=== PATIENT | female | born 2000 | race Caucasian/White ===

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

== ENCOUNTER 2018-04-04 10:33 | Emergency (ER) | payer BC ==
[2018-04-04 11:07] VITALS: BP 138/73
[2018-04-04] MEDS ORDERED: Albuterol 2.5 MG/3 ML NEB.SOL* (0.083%) INH ONE (11:21)
--- NOTE | 2018-04-04 11:23 | UC ---
UC General HPI - HPI Summary HPI Summary: 3 DAY HX COUGH, FEVER, BODY ACHES AND SORE THROAT. + WHEEZING AND ROYAL. CHEST HURTS WITH COUGH. NO HX ASTHMA. TXING WITH DAYQUIL. - History of Current Complaint Chief Complaint: UCGeneralIllness Stated Complaint: COUGH ACHY FEVER SORE THROAT Time Seen by Provider: 04/04/18 11:13 Hx Obtained From: Patient Hx Last Menstrual Period: 04/01/18 Onset/Duration: Sudden Onset Timing: Constant Pain Intensity: 4 Associated Signs & Symptoms: Negative: Abdominal Pain, Diarrhea, Dysuria, Nausea , Vomiting - Allergy/Home Medications Allergies/Adverse Reactions: Allergies Allergy/AdvReac Type Severity Reaction Status Date / Time amoxicillin Allergy Rash And Verified 04/04/18 11:03 Itching Home Medications: Home Medications ALPRAZolam [Xanax] 2 mg PO DAILY 04/04/18 [History Confirmed 04/04/18] Dm/Pseudoephed/Acetaminophen [Day-Time Cold-Flu Softgel] 1 each PO ONCE [History Confirmed 04/04/18] Lisinopril TAB* [Prinivil TAB 10 MG*] 10 mg PO DAILY 04/04/18 [History Confirmed 04/04/18] Venlafaxine HCl 150 mg PO DAILY 04/04/18 [History Confirmed 04/04/18] PMH/Surg Hx/FS Hx/Imm Hx - Additional Past Medical History Additional PMH: ANEMIA Cardiovascular History: Hypertension Psychological History: Anxiety Other History Of: Negative For: HIV, Hepatitis B, Hepatitis C, Anticoagulant Therapy - Surgical History Surgical History: Yes Surgery Procedure, Year, and Place: tonsilectomy - Family History Known Family History: Positive: Hypertension Negative: Cardiac Disease - Social History Occupation: Employed Full-time Alcohol Use: None Substance Use Type: None Smoking Status (MU): Never Smoked Tobacco Household Exposure Type: Cigarettes - Immunization History Vaccination Up to Date: Yes Review of Systems All Other Systems Reviewed And Are Negative: Yes Constitutional: Positive: Fever, Chills Skin: Positive: Negative Eyes: Positive: Negative ENT: Positive: Sore Throat Respiratory: Positive: Shortness Of Breath, Cough Cardiovascular: Positive: Negative Gastrointestinal: Positive: Negative Genitourinary: Positive: Negative Motor: Positive: Negative Neurovascular: Positive: Negative Musculoskeletal: Positive: Myalgia Neurological: Positive: Negative Psychological: Positive: Negative Is Patient Immunocompromised?: No Physical Exam Triage Information Reviewed: Yes Appearance: Well-Appearing Vital Signs: Initial Vital Signs Temp 97.6 F 04/04/18 11:00 Pulse 85 04/04/18 11:00 Resp 17 04/04/18 11:00 BP 138/73 04/04/18 11:00 Pulse Ox 99 04/04/18 11:00 Vital Signs Reviewed: Yes Eyes: Positive: Conjunctiva Clear ENT: Positive: Pharynx normal, TMs normal. Negative: Nasal congestion, Nasal drainage Neck: Positive: Supple, Nontender, No Lymphadenopathy Respiratory: Positive: No respiratory distress, Decreased breath sounds, Other: - CONGESTED COUGH Cardiovascular: Positive: RRR, No Murmur Abdomen Description: Positive: Nontender, No Organomegaly, Soft Bowel Sounds: Positive: Present Musculoskeletal: Positive: ROM Intact Neurological: Positive: Alert Psychological: Positive: Age Appropriate Behavior Skin Exam: Normal Diagnostics - Laboratory Diagnostic Studies Completed/Ordered: RAPID FLU AND STREP ARE NEGATIVE - Radiology No standard instances Radiology Interpretation Completed By: Radiologist - cxr=NO ACTIVE CARDIOPULMONARY DISEASE. Course/Dx - Course Course Of Treatment: non toxic, rapid flu/strep are neg. cxr=nad. - Diagnoses Provider Diagnosis: Sore throat, Bronchitis Discharge - Sign-Out/Discharge Documenting (check all that apply): Patient Departure All imaging exams completed and their final reports reviewed: Yes - Discharge Plan Condition: Stable Disposition: HOME Prescriptions: Albuterol HFA INHALER* [Ventolin HFA Inhaler*] 2 puff INH Q6H #1 mdi predniSONE TAB* [Deltasone 20 MG TAB*] 40 mg PO DAILY 5 Days #10 tab Patient Education Materials: Pharyngitis (ED), Acute Bronchitis (ED) Forms: *Work Release Referrals: Scar Manzano MD [Primary Care Provider] - 5 Days - Billing Disposition and Condition Condition: STABLE Disposition: Home
== END 2018-04-04 12:18 | disposition home or self-care (01) ==
LOC: UCCORT 10:33
DX: J02.9 Acute pharyngitis, unspecified (principal); J40 Bronchitis, not specified as acute or chronic; Z88.0 Allergy status to penicillin; I10 Essential (primary) hypertension; F41.9 Anxiety disorder, unspecified
CPT/HCPCS: 71046; 87651; 99212; G0463

== ENCOUNTER 2018-08-20 11:04 | Emergency (ER) | payer BC ==
[2018-08-20 11:31] VITALS: BP 109/80
--- NOTE | 2018-08-20 11:32 | UC ---
Ear Complaint HPI - HPI Summary HPI Summary: 18 -year-old female who has had cold symptoms for approximately 3 weeks. She states the symptoms have been waxing and waning but today she has nasal congestion and sinus congestion and pressure as well as a right earache and sore throat. - History of Current Complaint Chief Complaint: UCGeneralIllness Stated Complaint: ST,COUGH Time Seen by Provider: 08/20/18 11:32 Hx Obtained From: Patient Hx Last Menstrual Period: 07/02/18 ?: No Onset/Duration: Gradual Onset Severity Initially: Mild Severity Currently: Mild Pain Intensity: 7 Aggravating Factors: Nothing Alleviating Factors: Nothing Associated Signs/Symptoms: Positive: URI Symptoms - Allergies/Home Medications Allergies/Adverse Reactions: Allergies Allergy/AdvReac Type Severity Reaction Status Date / Time amoxicillin Allergy Rash And Verified 04/04/18 11:03 Itching Home Medications: Home Medications Ferrous Sulfate 325 mg PO DAILY 08/20/18 [History Confirmed 08/20/18] PMH/Surg Hx/FS Hx/Imm Hx Previously Healthy: Yes Other History Of: Negative For: HIV, Hepatitis B, Hepatitis C, Anticoagulant Therapy - Surgical History Surgical History: Yes Surgery Procedure, Year, and Place: tonsilectomy - Family History Known Family History: Positive: Hypertension Negative: Cardiac Disease - Social History Alcohol Use: None Substance Use Type: None Smoking Status (MU): Never Smoked Tobacco Household Exposure Type: Cigarettes - Immunization History Vaccination Up to Date: Yes Review of Systems All Other Systems Reviewed And Are Negative: Yes ENT: Positive: Sore Throat - Sore throat started yesterday., Ear Ache - Right earache today., Nasal Discharge - Yellow purulent nasal coryza., Sinus Congestion, Sinus Pain/Tenderness Respiratory: Positive: Cough - Occasional cough with yellow sputum. Is Patient Immunocompromised?: No Physical Exam Triage Information Reviewed: Yes Appearance: Well-Appearing, No Pain Distress, Well-Nourished Vital Signs: Initial Vital Signs Temp 97.7 F 08/20/18 11:27 Pulse 92 08/20/18 11:27 Resp 16 08/20/18 11:27 BP 109/80 08/20/18 11:27 Pulse Ox 99 08/20/18 11:27 Vital Signs Reviewed: Yes Eyes: Positive: Conjunctiva Clear ENT: Positive: Hearing grossly normal, Pharyngeal erythema - Very minimal erythema pharynx., TM red - Right tympanic membrane with erythema and minimal bulging., Sinus tenderness, Uvula midline. Negative: Tonsillar swelling, Tonsillar exudate, Trismus, Muffled voice Neck: Positive: Supple, Nontender, No Lymphadenopathy Respiratory: Positive: Lungs clear, Normal breath sounds, No respiratory distress, No accessory muscle use Cardiovascular: Positive: RRR, No Murmur, Pulses Normal, Brisk Capillary Refill Ear Complaint Course/Dx - Course Course Of Treatment: Patient is comfortable here. I did treat her with Zithromax with a definite follow-up with her primary care provider if no improvement of for 5 days. - Differential Dx/Diagnosis Provider Diagnosis: Otitis media, Pharyngitis Discharge - Sign-Out/Discharge Documenting (check all that apply): Patient Departure All imaging exams completed and their final reports reviewed: No Studies - Discharge Plan Condition: Fair Disposition: HOME Prescriptions: Azithromyxin PHUC (NF) [Z-Phuc (Zithromax) 250 mg tabs #6] 2 tab PO .TODAY, THEN 1 DAILY #6 tab Patient Education Materials: Pharyngitis (ED), Ear Infection (ED) Referrals: Doug Wilkinson MD [Primary Care Provider] - Additional Instructions: Increase fluids, Tylenol or Motrin for pain. Definite follow-up with your primary care provider in 4-5 days if no improvement. - Billing Disposition and Condition Condition: FAIR Disposition: Home
== END 2018-08-20 11:52 | disposition home or self-care (01) ==
LOC: UCCORT 11:04
DX: H66.91 Otitis media, unspecified, right ear (principal); J02.9 Acute pharyngitis, unspecified; R09.81 Nasal congestion; Z88.0 Allergy status to penicillin
CPT/HCPCS: 99212; G0463

== ENCOUNTER 2019-02-16 15:51 | Emergency (ER) | payer BC ==
[2019-02-16 17:54] LABS: ABS Lymphocytes 2.7 10^3/ul (1.0-4.8); ABS Monocytes 0.8 10^3/ul (0-0.8); ABS Neutrophils 6.4 10^3/ul (1.5-7.7); Eosinophil % 0.1 %; Hematocrit 37 % (35-47); Hemoglobin 11.8 g/dL (12.0-16.0); Lymphocyte % 26.9 %; Mean Corpuscular HGB Conc 32 g/dL (31-36); Mean Corpuscular Hemoglobin 26 pg (27-31); Mean Corpuscular Volume 80 fL (80-97); Mean Platelet Volume 7.1 fL (7.4-10.4); Nucleated Red Blood Cells % 0.1; Platelet Count 414 10^3/uL (150-450); Red Blood Count 4.61 10^6 /uL (3.70-4.87); Red Cell Distribution Width 15 % (10-15); White Blood Count 9.9 10^3/uL (3.5-10.8)
[2019-02-16 18:10] LABS: ALT 13 U/L (7-52); AST 12 U/L (13-39); Albumin 4.1 g/dL (3.2-5.2); Albumin/Globulin Ratio 1.2 (1-3); Alkaline Phosphatase 75 U/L (34-104); Anion Gap 7 mmol/L (2-11); BUN/Creatinine Ratio 22.2 (8-20); Blood Urea Nitrogen 14 mg/dL (6-24); CO2 Carbon Dioxide 25 mmol/L (22-32); Calcium 9.4 mg/dL (8.6-10.3); Chloride 105 mmol/L (101-111); EGFR African American 145.8 (>60); EGFR Non-African American 120.5 (>60); Globulin 3.3 g/dL (2-4); Glucose 89 mg/dL (70-100); Sodium 137 mmol/L (135-145); Total Protein 7.4 g/dL (6.4-8.9)
[2019-02-16] MEDS ORDERED: Ondansetron INJ* 2 MG/ML VIAL IV ONE (18:10)
[2019-02-16] MEDS ORDERED: Morphine 4 MG/ML VIAL (1 ml) 4 MG/ML VIAL IV ONE ×2 (18:10→21:19)
[2019-02-16] MEDS ORDERED: NS 0.9% 1000 ML** 2,000 ML IV ONE (18:10)
[2019-02-16] MEDS ORDERED: Morphine 4 MG/ML VIAL (1 ml) 4 MG/ML VIAL IV PRN ×2 (18:11→21:19)
--- NOTE | 2019-02-16 18:11 | ED ---
Abdominal Pain/Female - HPI Summary HPI Summary: This patient is a 18 year old female presenting to [facility] with a chief complaint of abdominal pain since yesterday. She states the pain was in the umbilical area and radiated to her right side to her flank. She reports nausea, vomiting, and diarrhea. She states anything she tries to consume PO comes back up. She says has never had abdominal surgery but states she was admitted for the same thing and she was diagnosed with UTI. She reports dizziness. - History of Current Complaint Chief Complaint: EDAbdPain Stated Complaint: RIGHT SIDE ABDOMINAL/BACK PAIN,NAUSEA PER PT Time Seen by Provider: 02/16/19 18:06 Hx Obtained From: Patient Hx Last Menstrual Period: 07/02/18 Pain Intensity: 6 Pain Scale Used: 0-10 Numeric Location: Umbilical Radiates: Yes Radiates to: Flank Allergies/Adverse Reactions: Allergies Allergy/AdvReac Type Severity Reaction Status Date / Time amoxicillin Allergy Rash And Verified 02/16/19 16:09 Itching PMH/Surg Hx/FS Hx/Imm Hx Endocrine/Hematology History: Denies: Hx Anticoagulant Therapy, Hx Diabetes, Hx Thyroid Disease Cardiovascular History: Reports: Hx Hypertension Denies: Hx Congestive Heart Failure, Hx Deep Vein Thrombosis, Hx Myocardial Infarction, Hx Pacemaker/ICD Respiratory History: Denies: Hx Asthma, Hx Chronic Obstructive Pulmonary Disease (COPD), Hx Lung Cancer, Hx Pneumonia, Hx Pulmonary Embolism GI History: Denies: Hx Gall Bladder Disease, Hx Gastrointestinal Bleed, Hx Ulcer, Hx Urosepsis History: Denies: Hx Kidney Stones, Hx Renal Disease Neurological History: Denies: Hx Dementia, Hx Migraine, Hx Seizures, Hx Transient Ischemic Attacks (TIA) Psychiatric History: Denies: Hx Anxiety, Hx Depression, Hx Schizophrenia, Hx Bipolar Disorder - Surgical History Surgery Procedure, Year, and Place: tonsilectomy Infectious Disease History: No Infectious Disease History: Denies: History Other Infectious Disease, Traveled Outside the [place] in Last 30 Days - Family History Known Family History: Positive: Hypertension Negative: Cardiac Disease - Social History Alcohol Use: None Substance Use Type: Reports: None Smoking Status (MU): Never Smoked Tobacco Review of Systems Positive: Abdominal Pain, Vomiting, Diarrhea, Nausea Neurological: Other - Dizziness All Other Systems Reviewed And Are Negative: Yes Physical Exam - Summary Physical Exam Summary: Appearance: Well-appearing, Well-nourished, lying in bed comfortably Skin: Warm, dry, no obvious rash Eyes: sclera anicteric, no conjunctival pallor ENT: mucous membranes moist, pharynx appears normal Neck: Supple, nontender Respiratory: Clear to auscultation, no signs of respiratory distress Cardiovascular: Normal S1, S2. No murmurs. Normal distal pulses in tibial and radial bilaterally. Abdomen: Soft, nontender, normal active bowel sounds present Musculoskeletal: Normal, Strength/ROM Intact Neurological: A&Ox3, awake and alert, mentation is normal, speech is fluent and appropriate Psychiatric: affect is normal, does not appear anxious or depressed Triage Information Reviewed: Yes Vital Signs On Initial Exam: Initial Vitals Temp Pulse Resp BP Pulse Ox 97.5 F 97 18 140/82 99 02/16/19 16:06 02/16/19 16:06 02/16/19 16:06 02/16/19 16:06 02/16/19 16:06 Vital Signs Reviewed: Yes Procedures - Sedation Patient Received Moderate/Deep Sedation with Procedure: No Diagnostics - Vital Signs Vital Signs Temp Pulse Resp BP Pulse Ox 02/16/19 16:06 97.5 F 97 18 140/82 99 - Laboratory Lab Results: Lab Results 02/16/19 Range/Units 17:37 WBC 9.9 (3.5-10.8) 10^3/uL RBC 4.61 (3.70-4.87) 10^6 /uL Hgb 11.8 L (12.0-16.0) g/dL Hct 37 (35-47) % MCV 80 (80-97) fL MCH 26 L (27-31) pg MCHC 32 (31-36) g/dL RDW 15 (10-15) % Plt Count 414 (150-450) 10^3/uL MPV 7.1 L (7.4-10.4) fL Neut % (Auto) 64.3 % Lymph % (Auto) 26.9 % Osborne % (Auto) 8.3 % Eos % (Auto) 0.1 % Baso % (Auto) 0.4 % Absolute Neuts (auto) 6.4 (1.5-7.7) 10^3/ul Absolute Lymphs (auto) 2.7 (1.0-4.8) 10^3/ul Absolute Monos (auto) 0.8 (0-0.8) 10^3/ul Absolute Eos (auto) 0.0 (0-0.6) 10^3/ul Absolute Basos (auto) 0.0 (0-0.2) 10^3/ul Absolute Nucleated RBC 0.0 10^3/ul Nucleated RBC % 0.1 Result Diagrams: 02/16/19 17:37 02/16/19 17:37 Lab Statement: Any lab studies that have been ordered have been reviewed, and results considered in the medical decision making process. Abdominal Pain Fem Course/Dx - Course Course Of Treatment: his patient is a 18 year old female presenting to [facility] with a chief complaint of abdominal pain since yesterday. The patient will be signed out to Dr. Mosqueda pending CT Abd/Pel. - Diagnoses Provider Diagnoses: Abdominal pain Discharge ED - Sign-Out/Discharge Documenting (check all that apply): Sign-Out Patient Signing out patient TO: Luisa Mosqueda - Pend CT Abd/Pel - Discharge Plan Condition: Stable Disposition: HOME Patient Education Materials: Abdominal Pain (ED) Forms: *Work Release Referrals: Ramirez Heller MD [Primary Care Provider] - 1 Day Additional Instructions: Follow up with your primary care provider within 1 day. Return to the ED for any new or worsening symptoms. - Billing Disposition and Condition Condition: STABLE Disposition: Home - Attestation Statements Document Initiated by Refugio: Yes Documenting Maritzaibe: Irvin Monique Provider For Whom Refugio is Documenting (Include Credential): Roel Lawson MD Scribrobert Attestation: Irvin Bermeo, scribed for Roel Lawson MD on 02/19/19 at 1837. Scribe Documentation Reviewed: Yes Provider Attestation: The documentation as recorded by the Irvin arana accurately reflects the service I personally performed and the decisions made by me, Roel Lawson MD Status of Scribe Document: Viewed
[2019-02-16 18:14] LABS: HCG Pregnancy < 0.60 mIU/mL
[2019-02-16 21:57] LABS: Urine Appearance Turbid; Urine Bilirubin Negative (Negative); Urine Blood Negative (Negative); Urine Color Yellow; Urine Glucose Negative (Negative); Urine Ketones Negative (Negative); Urine Nitrite Negative (Negative); Urine Protein Negative (Negative); Urine Specific Gravity 1.019 (1.010-1.030); Urine Urobilinogen Negative (Negative)
[2019-02-16] MEDS ORDERED: Iohexol 300* (CONTRAST) 10 ML SDV IV ONE (22:16)
--- NOTE | 2019-02-16 22:25 | ED ---
Progress - Progress Note Progress Note: This pt is a signout from Dr. Lawson to Dr. Mosqueda at 2200 02/16/[address] A/P. CT A/P IMPRESSION: No CT findings to correlate with patient's symptomatology. Pt will be discharged. Course/Dx - Course Course Of Treatment: This pt is a signout from Dr. Lawson to Dr. Mosqueda at 2200 02/16/[address] A/P. CT A/P IMPRESSION: No CT findings to correlate with patient's symptomatology. Pt will be discharged. - Diagnoses Provider Diagnoses: Abdominal pain Discharge ED - Sign-Out/Discharge Documenting (check all that apply): Patient Departure - discharge, Receiving Sign-Out Receiving patient FROM: Roel Lawson - This pt is a signout from Dr. Lawson to Dr. Mosqueda at 2200 02/16/[address] A/P. - Discharge Plan Condition: Stable Disposition: HOME Patient Education Materials: Abdominal Pain (ED) Forms: *Work Release Referrals: Ramirez Heller MD [Primary Care Provider] - 1 Day Additional Instructions: Follow up with your primary care provider within 1 day. Return to the ED for any new or worsening symptoms. - Billing Disposition and Condition Condition: STABLE Disposition: Home - Attestation Statements Document Initiated by Maritzaibe: Yes Documenting Scribe: Alvaro Catalan Provider For Whom Refugio is Documenting (Include Credential): Dr. Luisa Mosqueda MD Scribe Attestation: Alvaro Bermeo scribed for Dr. Luisa Mosqueda MD on 02/17/19 at 0124. Scribe Documentation Reviewed: Yes Provider Attestation: The documentation as recorded by the Alvaro arana accurately reflects the service I personally performed and the decisions made by me, Dr. Luisa Mosqueda MD Status of Scribe Document: Viewed
[2019-02-17 00:17] VITALS: BP 130/65
== END 2019-02-17 00:13 | disposition home or self-care (01) ==
LOC: ED 15:51
DX: R10.9 Unspecified abdominal pain (principal); I10 Essential (primary) hypertension; Z88.0 Allergy status to penicillin
CPT/HCPCS: 36415; 74177; 80053; 81003; 83690; 84702; 85025; 86140; 96361; 96374; 96375; 96376; 99283; J2270; J2405; Q9967

== ENCOUNTER 2019-06-06 09:56 | Emergency (ER) | payer BC ==
[2019-06-06 10:10] VITALS: BP 129/62
[2019-06-06 10:52] LABS: Influenza A Molecular Negative (Negative); Influenza B Molecular Negative (Negative)
--- NOTE | 2019-06-06 11:13 | UC ---
Back Pain HPI - HPI Summary HPI Summary: patient signed in with complaint of "body aches", however on further investigation, she is reporting bilateral lower back that radiates to bilateral posterior legs worse when lies flat in bed or if bends forward. She describes "spasms". has taken ibuprofen 800mg with little relief symptoms have been present for over a month. Denies known tick bites - History of Current Complaint Chief Complaint: UCGeneralIllness Stated Complaint: BODY ACHES Time Seen by Provider: 06/06/19 10:33 Hx Obtained From: Patient Hx Last Menstrual Period: 02/07 Onset/Duration: Gradual Onset Timing: Constant Severity Initially: Severe Severity Currently: Severe Pain Intensity: 10 Back Pain: Is Discrete @ - bilateral lower back Character: Throbbing, Stiffness Aggravating Factor(s): Movement Alleviating Factor(s): Position Associated Signs And Symptoms: Positive: Tingling - legs - intermittent. Negative: Weakness, Numbness - Allergies/Home Medications Allergies/Adverse Reactions: Allergies Allergy/AdvReac Type Severity Reaction Status Date / Time amoxicillin Allergy Rash And Verified 06/06/19 10:11 Itching nitrofurantoin Allergy vomiting Verified 06/06/19 10:11 [From Macrobid] and diarhea Home Medications: Home Medications Divalproex DR TAB(*) [Depakote DR TAB(*)] 1,000 mg PO DAILY 06/06/19 [History Confirmed 06/06/19] Escitalopram * [Lexapro *] 20 mg PO DAILY 06/06/19 [History Confirmed 06/06/19] PMH/Surg Hx/FS Hx/Imm Hx Previously Healthy: Yes Psychological History: Depression, Bipolar Disorder Other History Of: Negative For: HIV, Hepatitis B, Hepatitis C, Anticoagulant Therapy - Surgical History Surgical History: Yes Surgery Procedure, Year, and Place: tonsilectomy adnoids - Family History Known Family History: Positive: Hypertension - Social History Occupation: Employed Full-time Lives: With Family Alcohol Use: None Substance Use Type: None Smoking Status (MU): Never Smoked Tobacco Household Exposure Type: Cigarettes - Immunization History Vaccination Up to Date: Yes Review of Systems All Other Systems Reviewed And Are Negative: Yes Constitutional: Positive: Negative. Negative: Fever, Chills Respiratory: Positive: Negative Cardiovascular: Positive: Negative Gastrointestinal: Positive: Negative. Negative: Abdominal Pain, Vomiting, Diarrhea Genitourinary: Positive: Negative - no incontinence Neurovascular: Positive: Negative Musculoskeletal: Positive: Other: - back pain Psychological: Positive: Negative Is Patient Immunocompromised?: No Physical Exam Triage Information Reviewed: Yes Appearance: Well-Appearing, No Pain Distress, Obese Vital Signs: Initial Vital Signs Temp 98 F 06/06/19 10:06 Pulse 84 06/06/19 10:06 Resp 20 06/06/19 10:06 BP 129/62 06/06/19 10:06 Pulse Ox 100 06/06/19 10:06 Vital Signs Reviewed: Yes Respiratory Exam: Normal Respiratory: Positive: Lungs clear Cardiovascular Exam: Normal Cardiovascular: Positive: RRR Musculoskeletal Exam: Normal Musculoskeletal: Positive: Strength Intact, ROM Intact - upper and lower extremeties Neurological Exam: Normal Psychological Exam: Normal Skin Exam: Normal Skin: Negative: Rashes Back Pain Course/Dx - Differential Dx/Diagnosis Differential Diagnosis/HQI/PQRI: Cauda Equina Syndrome, Herniated Disc, Strain, Sprain, Other - Lyme, influenza Provider Diagnosis: Low back pain, Sciatica Discharge ED - Sign-Out/Discharge Documenting (check all that apply): Patient Departure All imaging exams completed and their final reports reviewed: No Studies - Discharge Plan Condition: Good Disposition: HOME Prescriptions: Cyclobenzaprine TAB* [Flexeril 10 MG TAB*] 10 mg PO TID PRN #15 tab PRN Reason: Spasms - Back Patient Education Materials: Low Back Strain (ED) Referrals: Ramirez Heller MD [Primary Care Provider] - 3 Days (as previously scheduled) Additional Instructions: use ibuprofen 600-800mg every 8h as needed for pain warm packs for muscle relaxation use cyclobenzaprine as directed (muscle relaxer) - this will make you tired follow-up Dr. Heller as already scheduled next week - Billing Disposition and Condition Condition: GOOD Disposition: Home
== END 2019-06-06 11:30 | disposition home or self-care (01) ==
LOC: UCEAST 09:56
DX: M54.41 Lumbago with sciatica, right side (principal); M54.42 Lumbago with sciatica, left side; F31.9 Bipolar disorder, unspecified; F32.9 Major depressive disorder, single episode, unspecified; Z88.0 Allergy status to penicillin; Z88.8 Allergy status to other drugs, medicaments and biological substances; Z79.899 Other long term (current) drug therapy
CPT/HCPCS: 99212; G0463